=== PATIENT | female | born 1980 | race Caucasian/White ===

== ENCOUNTER → 2016-06-12 16:30 | Outpatient (CLI) | payer MEDICAID | END | disposition home or self-care (01) | LOC: D.MAMMO 14:30 | DX: Z85.3 Personal history of malignant neoplasm of breast (principal); N63 Unspecified lump in breast ==

== ENCOUNTER 2019-01-27 11:30 | Outpatient (CLI) | payer MEDICAID | END 2019-01-27 12:00 | disposition home or self-care (01) | LOC: D.MAMMO 11:30 | PROVIDERS: ATTEND Nurse Practitioner Family | DX: N63.20 Unspecified lump in the left breast, unspecified quadrant (principal); N64.4 Mastodynia ==